=== PATIENT | female | born 1990 | race Caucasian/White ===

== ENCOUNTER 2017-10-10 23:40 | Emergency (ER) | payer MEDICAID ==
[~2017-10-10] VITALS: Ht 160 cm; Wt 82.9 kg
[2017-10-10 23:49] VITALS: BP 134/88
== END 2017-10-11 00:33 | disposition home or self-care (01) ==
LOC: ED 10-11 00:10
DX: K02.9 Dental caries, unspecified (principal); K04.7 Periapical abscess without sinus
CPT/HCPCS: 41800; 99283